=== PATIENT | male | born 1935 | race Caucasian/White ===

== ENCOUNTER 2021-03-29 09:58 | Emergency (ER) | payer MEDICARE, OTHER ==
[2021-03-29 11:23] LABS: INR 1.15 (0.9-1.2); PTT 29.8 SECONDS (22.2-34.7)
[2021-03-29 11:25] LABS: BASOPHIL 0.6 % (0-2); HCT 39.7 % (42.0-52.0); HGB 12.3 g/dl (13.2-18.0); MCH 29.6 pg (25.0-31.0); MCV 95.4 fL (78.0-100.0); MONOCYTE 10.7 % (0-12); NEUTROPHIL 73.3 % (41-80); NRBC 0; PLT 324 K/uL (150-400); RBC 4.16 M/uL (4.70-6.00); RDW 14.2 % (11.5-14.0); WBC 6.7 K/uL (4.0-10.5)
[2021-03-29 11:35] LABS: ALBUMIN 2.9 g/dL (3.4-5.0); BILIRUBIN - TOTAL 0.4 mg/dL (0.2-1.0); BUN/CREAT RATIO (CALC) 19.6 RATIO; CREATININE 2.3 mg/dL (0.67-1.17); GLOBULIN (CALCULATION) 4.3 g/dL; POTASSIUM 4.8 mmol/L (3.5-5.1); TOTAL PROTEIN 7.2 g/dL (6.4-8.2)
[2021-03-29 11:38] LABS: D-DIMER 5.76 ug/mLFEU (0.00-0.41)
== END 2021-03-29 17:57 | disposition other institution (70) ==
LOC: FER 09:58
PROVIDERS: Emergency Medicine
DX: I50.9 Heart failure, unspecified (principal); J90 Pleural effusion, not elsewhere classified; I48.91 Unspecified atrial fibrillation; Z95.2 Presence of prosthetic heart valve; Z20.822 Contact with and (suspected) exposure to COVID-19
CPT/HCPCS: 36415; 71045; 78580; 80053; 83880; 84484; 85025; 85379; 85610; 85730; A9540; J1644; U0002

== ENCOUNTER 2022-05-09 09:02 | Emergency (ER) | payer MEDICARE, OTHER ==
[2022-05-09 10:29] LABS: BASOPHIL 0.7 % (0-2); EOSINOPHIL 3.2 % (0-7); HCT 39.6 % (42.0-52.0); LYMPHOCYTE 19.7 % (15-48); MCH 30.9 pg (25.0-31.0); MCHC 32.8 g/dL (32.0-36.0); MCV 94.1 fL (78.0-100.0); MONOCYTE 11.1 % (0-12); MPV 10.2 fL (6.0-9.5); NRBC 0; PLT 172 K/uL (150-400); RBC 4.21 M/uL (4.70-6.00); RDW 14.1 % (11.5-14.0); WBC 5.9 K/uL (4.0-10.5)
[2022-05-09 10:36] LABS: INR 2.65 (0.9-1.2); PROTHROMBIN TIME 27.3 SECONDS (11.9-13.9); PTT 43.7 SECONDS (24.9-34.6)
[2022-05-09 10:48] LABS: BILIRUBIN NEGATIVE (NEGATIVE); BLOOD 3+ Ery/uL (NEGATIVE); CLARITY CLOUDY (CLEAR); COLOR RED (YELLOW); GLUCOSE (U) NORMAL (NORMAL); LEUKOCYTES NEGATIVE Leu/uL (NEGATIVE); NITRITE NEGATIVE (NEGATIVE); PROTEIN 2+ mg/dL (NEGATIVE); UROBILINOGEN 0.2 mg/dL (0.2-1.0)
[2022-05-09 10:53] LABS: URINARY WBC RARE
[2022-05-09 10:57] LABS: URINARY RBC TNTC
[2022-05-09 11:12] LABS: ALBUMIN 3.3 g/dL (3.4-5.0); BILIRUBIN - TOTAL 0.5 mg/dL (0.2-1.0); CREATININE 1.64 mg/dL (0.67-1.17); GLOBULIN (CALCULATION) 3.2 g/dL; POTASSIUM 4.5 mmol/L (3.5-5.1); TOTAL PROTEIN 6.5 g/dL (6.4-8.2)
[2022-05-10 07:49] LABS: HCT 29.8 % (42.0-52.0); HGB 9.6 g/dL (13.2-18.0)
[2022-05-10 08:08] LABS: BUN/CREAT RATIO (CALC) 17.8 RATIO; CREATININE 1.74 mg/dL (0.67-1.17); POTASSIUM 4.7 mmol/L (3.5-5.1)
[2022-05-10 08:50] LABS: LACTIC ACID 2.4 mmol/L (0.4-1.9)
== END 2022-05-10 09:32 | disposition other institution (70) ==
LOC: FER 09:02
PROVIDERS: Emergency Medicine; Internal Medicine
DX: N28.89 Other specified disorders of kidney and ureter (principal); Z20.822 Contact with and (suspected) exposure to COVID-19
CPT/HCPCS: 36415; 36430; 36600; 71045; 80048; 80053; 81001; 82803; 83605; 84145; 84484; 85014; 85018; 85025; 85610; 85730; 87040; 87088; 93005; 96372; J0171; J3430; J7030; P9016; P9017; U0002